=== PATIENT | male | born 1995 | race Caucasian/White ===

== ENCOUNTER 2020-12-19 10:22 | Outpatient (CLI) | payer OTHER, SELFPAY | END 2020-12-19 10:23 | disposition home or self-care (01) | LOC: ANHCOVIDVC 10:22 | PROVIDERS: PCP Internal Medicine | DX: Z23 Encounter for immunization (principal) | CPT/HCPCS: 0001A; 91300 ==

== ENCOUNTER 2021-01-14 10:49 | Outpatient (CLI) | payer OTHER, SELFPAY | END 2021-01-14 10:50 | disposition home or self-care (01) | LOC: ANHCOVIDVC 10:49 | PROVIDERS: PCP Internal Medicine | DX: Z23 Encounter for immunization (principal) | CPT/HCPCS: 0002A; 91300 ==